=== PATIENT | female | born 1945 | race Caucasian/White ===

== ENCOUNTER 2018-06-04 21:05 | Emergency (ER) | payer OTHER ==
[2018-06-04 21:10] VITALS: BMI 27.4
[2018-06-04] MEDS ORDERED: SODIUM CHLORIDE 0.9% 1000 ML INFUS.BAG IV ONE (23:06)
[2018-06-04] MEDS ORDERED: ACETAMINOPHEN 1000 MG/100 ML VIAL (NON FORMULARY) IVPB ONE (23:06)
[2018-06-04] MEDS ORDERED: FAMOTIDINE 20 MG/50 ML IVPB 20 MG/50 ML MG IVPB ONE (23:09)
[2018-06-04] MEDS ORDERED: ONDANSETRON 4 MG/2 ML VIAL IVPUSH ONE (23:09)
--- NOTE | 2018-06-04 23:16 | PDOC ---
History of Present Illness <Cj Pardo - Last Filed: 06/05/18 01:06> - General History Source: Patient Exam Limitations: No Limitations - History of Present Illness Initial Comments: 06/04/18 23:15 The patient is a 72F with a PMH of HTN, prediabetes, and chronic low back pain who presents to the ER with complaints of 4 days of myalgias, weakness, nausea, vomiting, and diarrhea. The patient states that the weakness was so bad today that she was unable to hold herself up. She denies having anything like this in the past. She also admits to diffuse abdominal pain but cannot specify more on her abdominal pain. She denies CP, SOB, dysuria, hematuria, and cough. <Fabian Perez - Last Filed: 06/05/18 01:21> - General Chief Complaint: Pain Stated Complaint: SICK Time Seen by Provider: 06/04/18 22:55 Past History <Cj Pardo - Last Filed: 06/05/18 01:06> - Past Medical History Cancer: Yes (left breast lumpectomy) COPD: No Diabetes: No (impared fasting glucose) GI Disorders: Yes (gerd) HTN: Yes Hypercholesterolemia: Yes - Immunization History Immunization Up to Date: Yes - Suicide/Smoking/Psychosocial Hx Smoking Status: No Smoking History: Never smoked Number of Cigarettes Smoked Daily: 0 Hx Alcohol Use: Yes <Fabian Perez - Last Filed: 06/05/18 01:21> - Past Medical History Allergies/Adverse Reactions: Allergies Allergy/AdvReac Type Severity Reaction Status Date / Time No Known Allergies Allergy Verified 06/04/18 21:11 Home Medications: Ambulatory Orders Enalapril Maleate [Vasotec -] 10 mg PO DAILY #0 tablet 03/01/13 Omeprazole Magnesium [Prilosec (OTC)] 20 mg PO DAILY #0 tablet. 03/01/13 metFORMIN HCL [Glucophage -] 500 mg PO DAILY #0 tablet 03/01/13 Collagenase Clostridium Hist. [Santyl] 1 applic TP DAILY #90 oint...g. 03/24/18 Review of Systems - Review of Systems Able to Perform ROS?: Yes Comments:: 06/05/18 00:06 GENERAL/CONSTITUTIONAL: Positive for fever, chills, and weakness. HEAD, EYES, EARS, NOSE AND THROAT: No change in vision. No ear pain or discharge. No sore throat. CARDIOVASCULAR: No chest pain, palpitations, or lightheadedness. RESPIRATORY: No cough, wheezing, shortness of breath, or hemoptysis. GASTROINTESTINAL: Positive for nausea, vomiting, diarrhea, and diffuse abdominal pain. GENITOURINARY: No dysuria, frequency, hematuria, or change in urination. MUSCULOSKELETAL: Positive for myalgias. SKIN: No rash or lesions. NEUROLOGIC: No headache, numbness, tingling, focal weakness, loss of consciousness, or change in strength/sensation. Is the patient limited Mongolian proficient: No <Fabian Perez - Last Filed: 06/05/18 01:21> *Physical Exam - Vital Signs Last Vital Signs Temp Pulse Resp BP Pulse Ox 98.2 F 103 H 20 142/80 96 06/04/18 21:08 06/04/18 21:08 06/04/18 21:08 06/04/18 21:08 06/04/18 21:08 <Cj Pardo - Last Filed: 06/05/18 01:06> - Vital Signs Last Vital Signs Temp Pulse Resp BP Pulse Ox 98.2 F 103 H 20 142/80 96 06/04/18 21:08 06/04/18 21:08 06/04/18 21:08 06/04/18 21:08 06/04/18 21:08 - Physical Exam Comments: 06/05/18 00:08 GENERAL: Well developed, well nourished. Awake and alert. No acute distress. HEENT: Normocephalic, atraumatic. Hearing grossly normal. Moist mucous membranes. PERRLA, EOMI. No conjunctival pallor. Sclera are non-icteric. NECK: Supple. Full ROM. No JVD. CARDIOVASCULAR: Regular rate and rhythm. No murmurs, rubs, or gallops. PULMONARY: No evidence of respiratory distress. Lungs clear to auscultation bilaterally. No wheezing, rales or rhonchi. ABDOMINAL: Soft. Non-tender. Non-distended. No rebound or guarding. GENITOURINARY: No CVA tenderness bilaterally. MUSCULOSKELETAL: Normal range of motion at all joints. No bony deformities or tenderness. EXTREMITIES: No cyanosis. No clubbing. No edema. No calf tenderness or swelling. SKIN: Warm and dry. Normal capillary refill. No rashes. No jaundice. NEUROLOGICAL: Alert, awake, appropriate. Cranial nerves 2-12 grossly intact. Normal speech. PSYCHIATRIC: Cooperative. Good eye contact. Appropriate mood and affect. <Fabian Perez - Last Filed: 06/05/18 01:21> Moderate Sedation - Procedure Monitoring Vital Signs: Procedure Monitoring Vital Signs Temperature 98.2 F 06/04/18 21:08 Pulse Rate 103 H 06/04/18 21:08 Respiratory Rate 20 06/04/18 21:08 Blood Pressure 142/80 06/04/18 21:08 O2 Sat by Pulse Oximetry (%) 96 06/04/18 21:08 <Cj Pardo - Last Filed: 06/05/18 01:06> - Procedure Monitoring Vital Signs: Procedure Monitoring Vital Signs Temperature 98.2 F 06/04/18 21:08 Pulse Rate 103 H 06/04/18 21:08 Respiratory Rate 20 06/04/18 21:08 Blood Pressure 142/80 06/04/18 21:08 O2 Sat by Pulse Oximetry (%) 96 06/04/18 21:08 <Fabian Perez - Last Filed: 06/05/18 01:21> ED Treatment Course - LABORATORY CBC & Chemistry Diagram: 06/04/18 23:06 06/04/18 23:20 - ADDITIONAL ORDERS Additional order review: Laboratory Results 06/04/18 06/04/18 23:20 23:20 Sodium 138 Potassium 3.0 L Chloride 106 Carbon Dioxide 23 Anion Gap 9 BUN 13 Creatinine 0.7 Creat Clearance w eGFR > 60 Random Glucose 139 H Lactic Acid 1.1 Calcium 7.5 L Total Bilirubin 1.2 H AST 70 H ALT 21 Alkaline Phosphatase 86 Creatine Kinase 39 Troponin I < 0.02 Total Protein 6.2 L Albumin 2.9 L Lipase 113 06/04/18 23:06 RBC 4.09 MCV 86.7 MCHC 35.0 RDW 15.7 H MPV 9.1 Neutrophils % 78.3 D Lymphocytes % 7.3 L D Monocytes % 13.9 H D Eosinophils % 0.0 D Basophils % 0.5 - Medications Given in the ED: ED Medications Discontinued Medications Generic Name Dose Route Start Last Admin Trade Name Freq PRN Reason Stop Dose Admin Acetaminophen 1,000 mg 06/04/18 23:06 06/05/18 00:15 Ofirmev Injection - IVPB 06/04/18 23:07 1,000 mg ONCE ONE Administration Famotidine/Sodium Chloride 20 mg in 50 mls @ 100 mls/hr 06/04/18 23:09 00:16 Pepcid 20 Mg Premixed Ivpb - IVPB 06/04/18 23:38 100 mls/hr ONCE ONE Administration Metoclopramide HCl 10 mg 06/05/18 00:33 06/05/18 00:59 Reglan Injection - IVPUSH 06/05/18 00:34 10 mg ONCE ONE Administration Ondansetron HCl 4 mg 06/04/18 23:09 06/05/18 00:16 Zofran Injection IVPUSH 06/04/18 23:10 4 mg ONCE ONE Administration Potassium Chloride 20 meq 06/05/18 00:25 06/05/18 00:59 K-Dur - PO 06/05/18 00:26 20 meq ONCE ONE Administration Sodium Chloride 1,000 ml 06/04/18 23:06 06/05/18 00:15 Normal Saline - IV 06/04/18 23:07 1,000 ml ONCE ONE Administration <Cj Pardo - Last Filed: 06/05/18 01:06> - LABORATORY CBC & Chemistry Diagram: 06/04/18 23:06 06/04/18 23:20 <Fabian Perez - Last Filed: 06/05/18 01:21> Medical Decision Making - Medical Decision Making 06/05/18 00:08 The patient is a 72F with a PMH of HTN and prediabetes who presents to the ER with 4 days of myalgias, nausea, vomiting, diarrhea, fever, and abdominal pain concerning for influenza vs atypical presentation for ACS. EKG unremarkable. Giving symptomatic treatment and reassessing. 06/05/18 00:45 CBC, CMP WNL. Platelet count of 100. PO challenging pt. Influenza swab sent. K is 3.0. Replenishing with PO K. 06/05/18 00:59 Pt passed PO challenge. Flu swab negative. Trop negative. 06/05/18 01:20 Vitals normalized. Will d/c with PCP f/u. <Fabian Perez - Last Filed: 06/05/18 01:21> *DC/Admit/Observation/Transfer <Cj Pardo - Last Filed: 06/05/18 01:06> - Discharge Dispostion Decision to Admit order: No <Fabian Perez - Last Filed: 06/05/18 01:21> Diagnosis at time of Disposition: Viral syndrome - Discharge Dispostion Disposition: HOME Condition at time of disposition: Stable - Referrals Referrals: Kwesi Garvin MD [Primary Care Provider] - - Patient Instructions Additional Instructions: Your blood tests today showed that your platelets and potassium were slightly low. Please follow up with your primary doctor TOMORROW and let him know about these results. If you experience any abdominal pain, vomiting, chest pain, shortness of breath , or any other concerning symptoms, return to the ER immediately. - Post Discharge Activity
--- NOTE | 2018-06-04 23:37 | PDOC ---
Attending Attestation - Resident Resident Name: Fabian Perez - ED Attending Attestation I have performed the following: I have examined & evaluated the patient, The case was reviewed & discussed with the resident, I agree w/resident's findings & plan, Exceptions are as noted - HPI HPI: 06/04/18 23:34 The patient is a 72 year old female, with a significant PMH of HTN and high cholesterol,who presents to the emergency department today complaining of fever , chills, nausea, vomiting, diarrhea, and abdominal pain for 3 days. Pt states that she has had about 4 episodes of vomiting, nonbloody. Also endorses 3 episodes of watery brown diarrhea. States that her entire body hurts, including her shoulders and legs. Endorses diffuse abdominal cramping. Denies CP/SOB. Allergies: NKA Past surgical history: left breast lumpectomy PCP: Dr. Garvin - Physicial Exam PE: 06/04/18 23:37 "GENERAL: Awake, alert, and fully oriented, in no acute distress. HEAD: No signs of trauma EYES: PERRLA, EOMI, sclera anicteric, conjunctiva clear ENT: Auricles normal inspection, hearing grossly normal, nares patent, oropharynx clear without exudates. Moist mucosa NECK: Nontender, no stepoffs, Normal ROM, supple, no lymphadenopathy, JVD, or masses LUNGS: Breath sounds equal, clear to auscultation bilaterally. No wheezes, and no crackles HEART: Regular rate and rhythm, normal S1 and S2, no murmurs, rubs or gallops ABDOMEN: Soft, nontender, normoactive bowel sounds. No guarding, no rebound. No masses EXTREMITIES: Normal range of motion, no edema. No clubbing or cyanosis. No cords, erythema, or tenderness NEUROLOGICAL: Cranial nerves II through XII intact. 5/5 strength and sensation in all extremities, Normal speech, normal gait, normal cerebellar function SKIN: Warm, Dry, normal turgor, no rashes or lesions noted. - Medical Decision Making 06/04/18 23:37 72 F with diffuse bodyaches, abdominal pain, N+V+D. Exam with benign abdomen. Vitals notable for mild tachycardia. Pt afebrile in ED. Suspect viral gastroenteritis. Will check labs given vomiting and diarrhea. Also r/o ACS given age, though EKG is normal. - Labs, trop, lipase, lactate - IVF, GI cocktail - Consider CT if persistent pain 06/05/18 00:33 Labs notable for K 3.0 Will replete with PO K Labs otherwise unremarkable Pt reassessed - now feels better. repeat abdominal exam benign Will PO trial 06/05/18 01:08 Pt tolerated crackers and juice PO without N/V Repeat abdominal exam continues to be nontender Pt is well appearing, with normal vitals. Clinically stable for DC at this time. I discussed the physical exam findings, ancillary test results and final diagnoses with the patient. I answered all of the patient's questions. The patient was satisfied with the care received and felt comfortable with the discharge plan and treatment plan. The patient agrees to follow up with the primary care physician within 24-72 hours.
[2018-06-04 23:38] LABS: BASO % 0.5 % (0-2.0); HEMATOCRIT 35.4 % (32.4-45.2); HEMOGLOBIN 12.4 GM/dL (10.7-15.3); LYMPH % 7.3 % (8-40); MCH 30.3 pg (25.7-33.7); MEAN CELL VOLUME 86.7 fl (80-96); MEAN PLT VOLUME 9.1 fl (7.5-11.1); MONO % 13.9 % (3.8-10.2); NEUT % 78.3 % (42.8-82.8); PLATELET COUNT 100 K/MM3 (134-434); RBC 4.09 M/mm3 (3.60-5.2); RDW 15.7 % (11.6-15.6); WHITE BLOOD COUNT 9.3 K/mm3 (4.0-10.0)
[2018-06-05] MEDS ORDERED: ACETAMINOPHEN INJECTION 100 ML IVPB ONE
[2018-06-05] MEDS ORDERED: ONDANSETRON 4 MG/2 ML VIAL ONE
[2018-06-05] MEDS ORDERED: FAMOTIDINE 20 MG/50 ML IVPB 20 MG/50 ML MG IVPB ONE
[2018-06-05 00:21] LABS: ALBUMIN 2.9 g/dl (3.4-5.0); ALK PHOS 86 U/L (45-117); ANION GAP 9 MMOL/L (8-16); BILIRUBIN,TOTAL 1.2 mg/dL (0.2-1); BLOOD UREA NITROGEN 13 mg/dL (7-18); CALCIUM 7.5 mg/dL (8.5-10.1); CHLORIDE 106 mmol/L (98-107); CO2 23 mmol/L (21-32); CREATININE 0.7 mg/dL (0.55-1.3); GLUCOSE,RANDOM 139 mg/dL (74-106); LIPASE 113 U/L (73-393); SGOT/AST 70 U/L (15-37); SGPT/ALT 21 U/L (13-61); SODIUM 138 mmol/L (136-145); TOT PROT 6.2 g/dl (6.4-8.2)
[2018-06-05] MEDS ORDERED: POTASSIUM CHLORIDE TABS 20 MEQ TABLET.ER (FP) PO ONE ×4 (00:25→01:01)
[2018-06-05] MEDS ORDERED: KCL 10 MEQ IVPB 10 MEQ/100 ML INFUS.BAG IVPB SCH (00:30)
[2018-06-05] MEDS ORDERED: METOCLOPRAMIDE HCL INJECTION 10 MG/2 ML VIAL IVPUSH ONE (00:33)
[2018-06-05] MEDS ORDERED: KCL 10 MEQ IVPB 20 MEQ/200 ML INFUS.BAG IVPB ONE (00:53)
[2018-06-05] MEDS ORDERED: METOCLOPRAMIDE HCL INJECTION 10 MG/2 ML VIAL ONE (00:53)
[2018-06-05 01:07] VITALS: BP 118/68; PULSE 79; TEMP 97.9
[2018-06-05 02:09] LABS: PLATELET ESTIMATE SLT DECREASE
--- NOTE | 2018-06-05 09:55 | EKG ---
Test Reason : Blood Pressure : / mmHG Vent. Rate : 096 BPM Atrial Rate : 096 BPM P-R Int : 176 ms QRS Dur : 084 ms QT Int : 318 ms P-R-T Axes : -20 -20 -20 degrees QTc Int : 401 ms NORMAL SINUS RHYTHM MINIMAL VOLTAGE CRITERIA FOR LVH, MAY BE NORMAL VARIANT INFERIOR INFARCT , AGE UNDETERMINED ABNORMAL ECG WHEN COMPARED WITH ECG OF 27-FEB-2013 14:36, VENT. RATE HAS INCREASED BY 37 BPM Confirmed by GUDELIA MUIR MD ([id number]) on 06/05/2018 9:55:00 AM Referred By: Confirmed By:GUDELIA MUIR MD
== END 2018-06-05 01:42 | disposition home or self-care (01) ==
LOC: JER 21:05
PROC: 3E033GC Introduction of Other Therapeutic Substance into Peripheral Vein, Percutaneous Approach (ICD-10-PCS; principal; 2018-06-04)
PROC: 3E033GC Introduction of Other Therapeutic Substance into Peripheral Vein, Percutaneous Approach (ICD-10-PCS; 2018-06-04)
PROC: 3E033GC Introduction of Other Therapeutic Substance into Peripheral Vein, Percutaneous Approach (ICD-10-PCS; 2018-06-04)
PROC: 3E033NZ Introduction of Analgesics, Hypnotics, Sedatives into Peripheral Vein, Percutaneous Approach (ICD-10-PCS; 2018-06-04)
DX: B34.9 Viral infection, unspecified (principal); E87.6 Hypokalemia; I10 Essential (primary) hypertension; E78.00 Pure hypercholesterolemia, unspecified; K21.9 Gastro-esophageal reflux disease without esophagitis; Z85.3 Personal history of malignant neoplasm of breast
CPT/HCPCS: 36415; 80053; 82550; 83605; 83690; 84484; 85025; 87804; 93005; 93010; 99282-25; J0131; J7030

== ENCOUNTER 2018-09-27 13:47 | Inpatient (IN) | payer OTHER | END 2018-09-28 23:00 | disposition short-term general hospital (02) | LOC: JER 13:47 → JERBED 16:17 → J8W 17:33 → J2W 20:57 → JICU 21:04 ==

== ENCOUNTER 2019-11-21 18:58 | Inpatient (IN) | payer OTHER ==
--- NOTE | 2019-11-21 19:15 | PDOC ---
History of Present Illness - General Stated Complaint: VOMITING,NAUSEA Time Seen by Provider: 11/21/19 19:14 - History of Present Illness Initial Comments: 11/21/19 19:17 Patient is a 73year old female with hx of lymphoma, anemia sent from Dr. Nagy's office for evaluation of severe headache. This morning around 5 am, she went to the toilet, didn't feel so well, had a severe headache, associated with N/V (NBNB). She denies falling, trauma, LOC. She endorsed weakness, fatigue, diziness , denies chest pain, change of vision. She proceeded to go to her PCP Dr. Nagy, there they assessed her and found down her URINE Culture is positive for proteus marabellis. Patient was given ceftin prior and cutlure was resistant. She finished her 1 week course of antibiotic. Currently endorsed increased frequency of urinary. She was sent here for IV abx and eval of [facility] and follow up with hematolgoist Dr. fitzgerald at [facility] for lymphoma. Her headaches is mainly the occipital part, pain 9/10, happened suddenly today, denies photophobia, audiophobia. Past medical history: Hypertension, Hyperlipidemia, Diabetes Mellitus, Breast cancer dx 20yrs ago, s/p Left mastectomy with chemo and radiation. Lymphoma Allergies: Hydrocodone and mobic Past Surgical hx: Social History: Lives at home with son Smoking: Never smoked Alcohol: No alcohol use Drugs: Denies Travel: denies recently. PCP: Lilo Arm[facility] Connector: [place] GENERAL/CONSTITUTIONAL: No fever or chills. + weakness. HEAD, EYES, EARS, NOSE AND THROAT: No change in vision. No ear pain or discharge. No sore throat. CARDIOVASCULAR: No chest pain or shortness of breath RESPIRATORY: No cough, wheezing, or hemoptysis. GASTROINTESTINAL: +nausea, vomiting, -diarrhea or constipation. GENITOURINARY: No dysuria, or change in urination. + increase frequency, MUSCULOSKELETAL: No joint or muscle swelling or pain. No neck or back pain. SKIN: No rash NEUROLOGIC:+ headache, vertigo, no loss of consciousness, or change in strength/sensation. ENDOCRINE: No increased thirst. No abnormal weight change HEMATOLOGIC/LYMPHATIC: No anemia, easy bleeding, or history of blood clots. ALLERGIC/IMMUNOLOGIC: No hives or skin allergy. PE GENERAL: Awake, alert, and fully oriented, in no acute distress HEAD: No signs of trauma, normocephalic, atraumatic EYES: PERRLA, EOMI, sclera anicteric, conjunctiva clear ENT: Auricles normal inspection, hearing grossly normal, nares patent, oropharynx clear without exudates. Moist mucosa NECK: Normal ROM, supple, no lymphadenopathy, JVD, or masses LUNGS: No distress, speaks full sentences, clear to auscultation bilaterally HEART: Regular rate and rhythm, normal S1 and S2, no murmurs, rubs or gallops, peripheral pulses normal and equal bilaterally. +Chemoport in place. ABDOMEN: Soft, normoactive bowel sounds. No guarding, no rebound. No masses. Diffuse tenderness upon palpation. EXTREMITIES : Normal inspection, Normal range of motion, no edema. No clubbing or cyanosis. Left scar on the leg from surgery. NEUROLOGICAL: Cranial nerves II through XII grossly intact. Normal speech, no focal sensorimotor deficits. Gait is compromised due to spinal stenosis. Tenderness on the lumbar region ( she endorsed chronic problem). SKIN: Warm, Dry, normal turgor, no rashes or lesions noted 11/21/19 20:16 Past History - Medical History Allergies/Adverse Reactions: Allergies Allergy/AdvReac Type Severity Reaction Status Date / Time No Known Allergies Allergy Verified 05/24/19 15:21 Home Medications: Ambulatory Orders metFORMIN HCL [Glucophage -] 500 mg PO DAILY #0 tablet 03/01/13 Aspirin 81 mg PO DAILY 09/27/18 Aspirin 81 mg PO DAILY 09/27/18 Baclofen 10 mg PO HS 09/27/18 Dexlansoprazole [Dexilant] 60 mg PO DAILY 09/27/18 Duloxetine HCl [Cymbalta] 30 mg PO DAILY 09/27/18 Ergocalciferol (Vitamin D2) [Drisdol] 50,000 unit PO WEEKLY 09/27/18 Losartan Potassium 25 mg PO DAILY 09/27/18 Mirtazapine 15 mg PO DAILY 09/27/18 Rifaximin [Xifaxan] 550 mg PO DAILY 09/27/18 Rosuvastatin [Crestor -] 5 mg PO HS 09/27/18 Oxycodone HCl/Acetaminophen [Percocet 5-325 mg Tablet] 1 tab PO Q6H 11/21/19 Zolpidem Tartrate [Ambien] 10 mg PO HS 11/21/19 Anemia: Yes Cancer: Yes (left breast lumpectomy) COPD: No Diabetes: No (impared fasting glucose) GI Disorders: Yes (gerd) HTN: Yes Hypercholesterolemia: Yes - Immunization History Immunization Up to Date: Yes - Psycho-Social/Smoking History Smoking Status: No Smoking History: Never smoked Number of Cigarettes Smoked Daily: 0 ED Treatment Course - LABORATORY CBC & Chemistry Diagram: 11/21/19 20:16 11/21/19 20:16 Medical Decision Making - Medical Decision Making 11/21/19 20:09 73 F hx of lymphoma, breast cancer broought here from Dr. Nagy office for evaluation of IV antibiotic and headache evaluation. Imaging: CT scan non contrast Lab: CBC, CMP, lipase, trop, UA/UC EKG: reveal : normal sinus rhtyhm, vent rate 66, no ST changes suggesting ischemic. 11/21/19 21:34 CT scan showed no bleeding/ no acute pathology Lab: no elevated WBC, trop is negative , UA is normal. Reassessed patient. Patient is still complaining of dizziness/ spinning sensation when she moved left and right. She hasn't also eaten anything. This is more vertigo. Will give 1 L of fluid, torado for pain, meclizine for vertigo. MBMD was sent. 11/21/19 22:[address] Will under tele observation. 11/21/19 22:08 11/21/19 22:10 Discharge - Discharge Information Problems reviewed: Yes Clinical Impression/Diagnosis: Vertigo, Pre-syncope Condition: Fair - Admission Yes - Follow up/Referral - Patient Discharge Instructions - Post Discharge Activity
--- NOTE | 2019-11-21 19:28 | PDOC ---
Attending Attestation - Resident Resident Name: Sudeep Wetzel - ED Attending Attestation I have performed the following: I have examined & evaluated the patient, The case was reviewed & discussed with the resident, I agree w/resident's findings & plan - HPI HPI: 11/21/19 20:13 73year old female with hx of Hypertension, Hyperlipidemia, Diabetes Mellitus, Breast cancer dx 20yrs ago, s/p Left mastectomy with chemo and radiation. Lymphoma and anemia, sent from Dr. Nagy's office for evaluation of severe headache. This morning around 5 am, she went to the toilet, didn't feel so well, had a severe headache, associated with N/V (NBNB). She denies falling, trauma, LOC. She endorsed weakness, fatigue, diziness , denies chest pain, change of vision. She proceeded to go to her PCP Dr. Nagy, there they assessed her and found down her URINE Culture is positive for proteus marabellis. Patient was given ceftin prior and cutlure was resistant. She finished her 1 week course of antibiotic. Currently endorsed increased frequency of urinary. She was sent here for IV abx and eval of [facility] and follow up with hematolgoist Dr. Ochoa at [facility] for lymphoma. Her headaches is mainly the occipital part, pain 9/10, happened suddenly today, denies photophobia, audiophobia. 11/21/19 21:34 - Physicial Exam PE: 11/21/19 20:29 Agree with the resident's HPI and PE as documented in the electronic medical record. malaised appearing. EOMI, PERRL, nl conjunctiva, anicteric; neck supple. lungs clear, RRR, abdomen soft nontender. no rebound, guarding. Back nontender. KRUSE x4, no focal neuro deficits. No peripheral edema. normal color for ethnicity, WWP. speech clear no nystagmus 5/5 plantar and dorsiflexion, 5/5 prox and distal strength, SILT CN II to XII grossly intact speech clear. 11/21/19 21:34 - Medical Decision Making 11/21/19 19:28 Vital Signs Temp Pulse Resp BP Pulse Ox 98.0 F 69 20 155/90 99 11/21/19 19:09 11/21/19 19:11/21/19 19:09 11/21/19 19:11/21/19 19:11/21/19 21:29 vitals wnl neuro intact +vertigo, appears more peripheral, a/w n/v, head movements precipitate her dizziness which she demonstrates as the room is spinning. +acute headache analgesia in the ED, IVF, meclizine, reassess. Laboratory results are reviewed within normal limits, negative troponin, UA is negative for infection preliminarily, follow-up on urine culture ecg is sinus rhythm. Patient is already currently on some antibiotics and questionable treatment outpatient CT negative for acute pathology sx most c/w peripheral vertigo, unlikely head bleed/CVA. admit for presyncope workup, vertigo (intractible) a/w headache, observation, tele Dr Nagy also sent the patient to be admitted for ?UTI. 11/21/19 21:34 Heart Score/ECG Review #1 ECG reviewed & interpreted by me at: 19:15 General ECG Interpretation: Sinus Rhythm, Normal Rate, Normal Intervals 11/21/19 20:29 EKG normal sinus rhythm 66 beats per min, no interval abnormalities, narrow QRS, ST and T wave segments and morphology normal. Nonspecific T wave abnormalities Discharge - Discharge Information Problems reviewed: Yes Clinical Impression/Diagnosis: Vertigo, Pre-syncope Condition: Fair - Admission Yes - Follow up/Referral - Patient Discharge Instructions - Post Discharge Activity
[2019-11-21] MEDS ORDERED: ACETAMINOPHEN 1000 MG/100 ML VIAL (NON FORMULARY) IVPB ONE (19:51)
[2019-11-21] MEDS ORDERED: METOCLOPRAMIDE HCL INJECTION 10 MG/2 ML VIAL IVPB ONE (19:51)
[2019-11-21] MEDS ORDERED: METOCLOPRAMIDE HCL INJECTION 10 MG/2 ML VIAL ONE (20:19)
[2019-11-21] MEDS ORDERED: ACETAMINOPHEN INJECTION 100 ML IVPB ONE (20:19)
[2019-11-21 20:46] LABS: BASO % 0.3 % (0-2.0); EOS % 0.1 % (0-4.5); HEMATOCRIT 40.8 % (32.4-45.2); HEMOGLOBIN 13.7 GM/dL (10.7-15.3); LYMPH % 22.6 % (8-40); MCHC 33.6 g/dl (32.0-36.0); MEAN PLT VOLUME 7.7 fl (7.5-11.1); MONO % 6.6 % (3.8-10.2); NEUT % 70.4 % (42.8-82.8); PLATELET COUNT 179 K/MM3 (134-434); RBC 4.04 M/mm3 (3.60-5.2); RDW 13.4 % (11.6-15.6); WHITE BLOOD COUNT 4.3 K/mm3 (4.0-10.0)
[2019-11-21 20:47] LABS: EPI CELLS 1 /uL (0-25.1); HYALINE CASTS 0 /uL (0-3.1); PH,URINE 7.5 (5.0-8.0); URINE APPEARANCE CLOUDY; URINE BACTERIA 4 /uL (0-1359); URINE BILIRUBIN NEGATIVE (NEGATIVE); URINE COLOR YELLOW; URINE GLUCOSE (UA) NEGATIVE (NEGATIVE); URINE KETONE NEGATIVE (NEGATIVE); URINE LEUK ESTERASE NEGATIVE (NEGATIVE); URINE NITRITE NEGATIVE (NEGATIVE); URINE PROTEIN NEGATIVE (NEGATIVE); URINE RBC 3 /uL (0-23.9); URINE UROBILINOGEN 0.2 mg/dL (0.2-1.0); URINE WBC 2 /uL (0-25.8)
[2019-11-21 21:14] LABS: ALBUMIN 4.1 g/dl (3.4-5.0); BLOOD UREA NITROGEN 7.2 mg/dL (7-18); CALCIUM 9.4 mg/dL (8.5-10.1); CREATININE 0.4 mg/dL (0.55-1.3); POTASSIUM 3.8 mmol/L (3.5-5.1); TOT PROT 7.2 g/dl (6.4-8.2)
[2019-11-21] MEDS ORDERED: SODIUM CHLORIDE 0.9% 500 ML INFUS.BAG IV ONE (21:30)
[2019-11-21] MEDS ORDERED: KETOROLAC TROMETHAMINE 30 MG/1 ML VIAL IVPUSH ONE (21:30)
[2019-11-21] MEDS ORDERED: MECLIZINE HCL 25 MG TABLET (FP) PO ONE (21:32)
[2019-11-21] MEDS ORDERED: KETOROLAC TROMETHAMINE 15 MG/ML VIAL ONE (21:33)
[2019-11-21] MEDS ORDERED: MECLIZINE HCL 25 MG TABLET (FP) ONE (21:33)
[2019-11-21] MEDS ORDERED: KETOROLAC TROMETHAMINE 15 MG/ML VIAL IVPUSH ONE (21:33)
--- NOTE | 2019-11-21 22:18 | HP ---
CHIEF COMPLAINT: "I feel my head spinning and I have a severe headache, nausea and vomiting ." PCP:Dr. Garvin Manager Emergency: Dr. Berg at [facility] HISTORY OF PRESENT ILLNESS: 73 year old mainly Filipino speaking female with history of hypertension, hyperlipidemia, NIDDM, lymphoma and breast cancer, status post left mastectomy with chemo and radiation,in remission and anemia who was sent from Dr. Garvin's office for evaluation of severe headache. As reported this morning around 5 am, she went to the toilet, and she didn't feel so well, had a severe headache, associated with nausea and vomiting. She denied falling, trauma, or loss of consciousness. She endorses weakness, fatigue, and diziness saying "head is spinning". She denied chest pain or change of vision. She went to see her PCP Dr. Garvin, there they assessed her and found her urine culture is positive for proteus marabellis. Patient was given ceftin prior and cutlure was resistant. She finished her 1 week course of antibiotic. Currently she endorsed increased frequency of urinary. She was sent here for IV abx and further evaluation of headache. ER course was notable for: CT scan of head with no acute intracranial findings. UA- cloudy,negative nitrite and leukoesterase, urine culture 11/21/2019 pending Lab findings- WBC 4.3, troponin <.03 She is hemodynamically stable and afebrile at this time. She received 1 liter of normal saline in ER. Recent Travel: no PAST MEDICAL HISTORY: hypertension hyperlipidemia non insulin dependent diabetes mellitus breast cancer dx 20yrs ago lymphoma PAST SURGICAL HISTORY: s/p left mastectomy with chemotherapy and radiation Social History: lives at home with son Smoking:no Alcohol:no Drugs: no Allergies No Known Allergies Allergy (Verified 05/24/19 15:21) HOME MEDICATIONS: Home Medications Medication Instructions Recorded metFORMIN HCL [Glucophage -] 500 mg PO DAILY #0 tablet 03/01/13 Aspirin 81 mg PO DAILY 09/27/18 Aspirin 81 mg PO DAILY 09/27/18 Baclofen 10 mg PO HS 09/27/18 Dexlansoprazole [Dexilant] 60 mg PO DAILY 09/27/18 Duloxetine HCl [Cymbalta] 30 mg PO DAILY 09/27/18 Ergocalciferol (Vitamin D2) 50,000 unit PO WEEKLY 09/27/18 [Drisdol] Losartan Potassium 25 mg PO DAILY 09/27/18 Mirtazapine 15 mg PO DAILY 09/27/18 Rifaximin [Xifaxan] 550 mg PO DAILY 09/27/18 Rosuvastatin [Crestor -] 5 mg PO HS 09/27/18 Oxycodone HCl/Acetaminophen 1 tab PO Q6H 11/21/19 [Percocet 5-325 mg Tablet] Zolpidem Tartrate [Ambien] 10 mg PO HS 11/21/19 REVIEW OF SYSTEMS CONSTITUTIONAL: Absent: fever, chills, diaphoresis, generalized weakness, fatigue, malaise, loss of appetite, weight change HEENT: Absent: rhinorrhea, nasal congestion, throat pain, throat swelling, difficulty swallowing, mouth swelling, ear pain, eye pain, visual changes CARDIOVASCULAR: Absent: chest pain, syncope, palpitations, irregular heart rate, lightheadedness, peripheral edema, RESPIRATORY: Absent: cough, shortness of breath, dyspnea with exertion, orthopnea, wheezing, stridor, hemoptysis GASTROINTESTINAL: Absent: abdominal pain, abdominal distension, nausea, vomiting, diarrhea, constipation, melena, hematochezia GENITOURINARY: Absent: dysuria, frequency, urgency, hesitancy, hematuria, flank pain, genital pain MUSCULOSKELETAL: Absent: myalgia, arthralgia, joint swelling, back pain, neck pain SKIN: Absent: rash, itching, pallor HEMATOLOGIC/IMMUNOLOGIC: Absent: easy bleeding, easy bruising, lymphadenopathy, frequent infections ENDOCRINE: Absent: unexplained weight gain, unexplained weight loss, heat intolerance, cold intolerance NEUROLOGIC: Absent: headache, focal weakness or paresthesias, dizziness, unsteady gait, seizure, mental status changes, bladder or bowel incontinence PSYCHIATRIC: Absent: anxiety, depression, suicidal or homicidal ideation, hallucinations. PHYSICAL EXAMINATION Vital Signs - 24 hr 11/21/19 19:09 Temperature 98.0 F Pulse Rate 69 Respiratory 20 Rate Blood Pressure 155/90 O2 Sat by Pulse 99 Oximetry (%) General no acute distress Vital signs reviewed afebrile Neck no JVD Lungs CTA nonlabored breathing effort no rales no wheezing no use of accessory muscles Heart s1s2 rate regular Abdomen soft nontender nondistended Extremities warm tot ouch no pitting edema no cyanosis Mood calm Laboratory Results - last 24 hr 11/21/19 11/21/1920 20:00 20:16 20:16 WBC 4.3 RBC 4.04 Hgb 13.7 Hct 40.8 D MCV 101.0 H MCH 34.0 H D MCHC 33.6 RDW 13.4 D Plt Count 179 D MPV 7.7 D Absolute Neuts (auto) 3.0 Neutrophils % 70.4 Lymphocytes % 22.6 D Monocytes % 6.6 Eosinophils % 0.1 D Basophils % 0.3 Nucleated RBC % 0 Sodium 140 Potassium 3.8 Chloride 105 Carbon Dioxide 28 Anion Gap 7 L BUN 7.2 Creatinine 0.4 L Est GFR (CKD-EPI)AfAm 119.76 Est GFR (CKD-EPI)NonAf 103.33 Random Glucose 110 H Calcium 9.4 Total Bilirubin 1.0 AST 25 ALT 36 Alkaline Phosphatase 107 Troponin I Total Protein 7.2 Albumin 4.1 Lipase 78 Urine Color Yellow Urine Appearance Cloudy Urine pH 7.5 D Ur Specific [place] 1.006 L Urine Protein Negative Urine Glucose (UA) Negative Urine Ketones Negative Urine Blood Trace Urine Nitrite Negative Urine Bilirubin Negative Urine Urobilinogen 0.2 Ur Leukocyte Esterase Negative Urine WBC (Auto) 2 Urine RBC (Auto) 3 Urine Casts (Auto) 0 U Epithel Cells (Auto) 1 Urine Bacteria (Auto) 4 11/21/19 20:16 WBC RBC Hgb Hct MCV MCH MCHC RDW Plt Count MPV Absolute Neuts (auto) Neutrophils % Lymphocytes % Monocytes % Eosinophils % Basophils % Nucleated RBC % Sodium Potassium Chloride Carbon Dioxide Anion Gap BUN Creatinine Est GFR (CKD-EPI)AfAm Est GFR (CKD-EPI)NonAf Random Glucose Calcium Total Bilirubin AST ALT Alkaline Phosphatase Troponin I < 0.02 Total Protein Albumin Lipase Urine Color Urine Appearance Urine pH Ur Specific [place] Urine Protein Urine Glucose (UA) Urine Ketones Urine Blood Urine Nitrite Urine Bilirubin Urine Urobilinogen Ur Leukocyte Esterase Urine WBC (Auto) Urine RBC (Auto) Urine Casts (Auto) U Epithel Cells (Auto) Urine Bacteria (Auto) ASSESSMENT/PLAN: In summary this is a 73 year old mainly Filipino speaking female with history of hypertension(on meds), hyperlipidemia, NIDDM, lymphoma and breast cancer, status post left mastectomy with chemo and radiation,in remission,and anemia who was sent from PCP office for evaluation of severe headache associated with nausea and vomiting. Her urine culture was positive for proteus marabellis in the outpatient setting(no records available) . She was treated with oral ceftin for 1 week but urine culture with sensitivity showed resistance to ceftin. She is being admitted for further medical evaluation and treatment for headache and increased frequency. 1. Headache/ ? Vertigo/ Presycopy SBP 150's CT scan of head negative --Neurology consulted- Dr. Molina --neuro checks q6hr --check carotid US --monitor on telemetry --consider echocardiogram in outpatient setting to exclude 2. R/O UTI UA negative for nitrite leukoesterase, trace blood seen urine culture was positive for proteus marabellis in the outpatient setting(no records available for review). As reported in chart she was treated with ceftin for 1 week prior but urine culture sensitivity showed resistance. --urine culture 11/20 pending --blood cultures ordered and pending --currently afebrile, no hypotension, normal WBC --check lactic acid and procalcitionin --will await for repeat urine culture results prior to starting IV antibiotics --Infectious Diseases consulted- Dr. Palacios for IV antibiotic recommendations 3. Hypertension SBP 150's --c/w losartan 4. Hyperlipidemia LFT's normal --c/w crestor 5. NIDDM --blood glucose monitoring before meals and at bedtime --hold metformin --insulin as per sliding scale --check hgba1c 6. Rule Out COVID(low suspicion) no evidence of hypoxia --follow up on COVID swab sent 11/20 --maintain strict isolation with contact /droplet precautions --maintain o2 sat >90% DVT Prophylaxis lovenox 40 mg daily FEN no further IVF indicated BMP daily, replete electrolytes as needed low sodium diet [facility] Medical Visit type - Medication Review Med list reviewed for High Risk Meds patients 65 and older: Yes - Emergency Visit Emergency Visit: Yes ED Registration Date: 11/21/19 Care time: The patient presented to the Emergency Department on the above date and was hospitalized for further evaluation of their emergent condition. - New Patient This patient is new to me today: Yes Date on this admission: 11/22/19 - Critical Care Critical Care patient: No
[2019-11-21] MEDS ORDERED: ERGOCALCIFEROL (VIT D2) 50,000 UNIT (1.25 MG) CAPSULE PO SCH (22:30)
[2019-11-21] MEDS: SODIUM CHLORIDE 1,000 ML IV SCH (22:53)
[2019-11-21] MEDS ORDERED: traMADol HCL 50 MG TABLET PO ONE (22:55)
[2019-11-21] MEDS ORDERED: ENOXAPARIN NA (PORCINE) 40 MG/0.4 ML DISP.SYRIN SQ ONE (23:42)
[2019-11-22] MEDS ORDERED: traMADol HCL 50 MG TABLET ONE (00:15)
[2019-11-22 04:47] VITALS: BMI 25.9
[2019-11-22] MEDS: INSULIN SLIDING SCALE (NOVOLOG) 1 VIAL SQ SCH ×4 (06:13→21:58)
[2019-11-22 08:12] LABS: HEMATOCRIT 36.9 % (32.4-45.2); HEMOGLOBIN 12.5 GM/dL (10.7-15.3); MCH 33.7 pg (25.7-33.7); MCHC 33.7 g/dl (32.0-36.0); MEAN PLT VOLUME 7.6 fl (7.5-11.1); PLATELET COUNT 165 K/MM3 (134-434); RBC 3.69 M/mm3 (3.60-5.2); RDW 13.6 % (11.6-15.6)
[2019-11-22 08:23] LABS: BLOOD UREA NITROGEN 7.4 mg/dL (7-18); CALCIUM 8.8 mg/dL (8.5-10.1); CREATININE 0.4 mg/dL (0.55-1.3); PHOSPHOROUS 3.5 mg/dL (2.5-4.9); POTASSIUM 3.7 mmol/L (3.5-5.1)
--- NOTE | 2019-11-22 08:24 | PN ---
Progress Note, Physician History of Present Illness: 73 year old mainly [place] speaking female with history of hypertension, hyperlipidemia, NIDDM, lymphoma and breast cancer, status post left mastectomy with chemo and radiation,in remission - Current Medication List Current Medications: Active Medications Aspirin (Asa -) 81 mg PO DAILY [facility] Baclofen (Lioresal -) 10 mg PO HS [facility] Duloxetine HCl (Cymbalta -) 30 mg PO DAILY [facility] Enoxaparin Sodium (Lovenox -) 40 mg SQ DAILY [facility] Ergocalciferol (Drisdol -) 50,000 unit PO Q7D@1000 JOEL Sodium Chloride (Normal Saline -) 1,000 mls @ 75 mls/hr IV ASDIR [facility] Last Admin: 11/21/19 22:53 Dose: 75 mls/hr Documented by: Insulin Aspart (Novolog Vial Sliding Scale -) 1 vial SQ ACHS [facility]; Protocol Last Admin: 11/22/19 06:13 Dose: Not Given Documented by: Losartan Potassium (Cozaar -) 25 mg PO DAILY JOEL Rosuvastatin Calcium (Crestor -) 5 mg PO HS [facility] - Objective Vital Signs: Vital Signs Temperature 97.5 F L 11/22/19 06:00 Pulse Rate 57 L 11/22/19 06:00 Respiratory Rate 18 11/22/19 06:00 Blood Pressure 137/73 11/22/19 06:00 O2 Sat by Pulse Oximetry (%) 96 11/22/19 06:00 Cardiovascular: Yes: Regular Rate and Rhythm Respiratory: Yes: Regular, CTA Bilaterally Gastrointestinal: Yes: Normal Bowel Sounds, Soft. No: Tenderness Edema: No Neurological: Yes: Alert, Oriented Labs: CBC, BMP 11/22/19 06:35 Problem List - Problems (1) UTI (urinary tract infection) Assessment/Plan: -urine culture was positive for proteus marabellis in the outpatient setting(no records available for review). As reported in chart she was treated with ceftin for 1 week prior but urine culture sensitivity showed resistance. --urine culture 11/20 pending --blood cultures ordered and pending --Infectious Diseases consulted-- IV antibiotic recommendations Code(s): N39.0 - URINARY TRACT INFECTION, SITE NOT SPECIFIED (2) New onset of headaches Assessment/Plan: -Associated with dizziness - MRI nad - CT scan of head negative --Neurology consulted- Dr. Molina --neuro checks q6hr --carotid US minimal ds --monitor on telemetry Code(s): R51 - HEADACHE (3) Diabetes Assessment/Plan: bgm Code(s): E11.9 - TYPE 2 DIABETES MELLITUS WITHOUT COMPLICATIONS (4) Hypertension Code(s): I10 - ESSENTIAL (PRIMARY) HYPERTENSION (5) Lymphoma Assessment/Plan: Patient has a port for chemo and MRI can be done Code(s): C85.90 - NON-HODGKIN LYMPHOMA, UNSPECIFIED, UNSPECIFIED SITE (6) Spinal stenosis of lumbar region with radiculopathy Assessment/Plan: monitor neuro Code(s): M48.061 - SPINAL STENOSIS, LUMBAR REGION WITHOUT NEUROGENIC ELINA; M54.16 - RADICULOPATHY, LUMBAR REGION
[2019-11-22] MEDS: DULoxetine HCL 30 MG CAPSULE.DR PO SCH (09:06)
[2019-11-22] MEDS: LOSARTAN POTASSIUM 25 MG TABLET PO SCH (09:06)
[2019-11-22] MEDS: ASPIRIN 81 MG CHEWABLE TABLETS PO SCH (09:06)
[2019-11-22] MEDS ORDERED: RIFAXIMIN 550 MG TABLET (UD) PO SCH (10:00)
[2019-11-22] MEDS ORDERED: ENOXAPARIN NA (PORCINE) 40 MG/0.4 ML DISP.SYRIN SQ SCH (10:00)
--- NOTE | 2019-11-22 11:31 | EKG ---
Test Reason : Blood Pressure : / mmHG Vent. Rate : 066 BPM Atrial Rate : 066 BPM P-R Int : 174 ms QRS Dur : 086 ms QT Int : 426 ms P-R-T Axes : -09 -22 009 degrees QTc Int : 446 ms NORMAL SINUS RHYTHM MODERATE VOLTAGE CRITERIA FOR LVH, MAY BE NORMAL VARIANT INFERIOR INFARCT (CITED ON OR BEFORE 04-JUN-2018) ABNORMAL ECG WHEN COMPARED WITH ECG OF 27-SEP-2018 15:00, NO SIGNIFICANT CHANGE WAS FOUND Confirmed by JUANITO BREAUX MD ([id number]) on 11/22/2019 11:30:55 AM Referred By: Confirmed By:JUANITO BREAUX MD
--- NOTE | 2019-11-22 13:17 | PN ---
Progress Note (short form) - Note Progress Note: ID CONSULT DICTATED UTI- PROTEUS R/O SEPSIS SECONDARY TO UTI NEAR SYNCOPE AWAIT REPEAT C/S EMPIRIC CEFTRIAXONE
[2019-11-22] MEDS ORDERED: DEXTROSE 5%-WATER 100 ML IVPB ONE (13:38)
[2019-11-22] MEDS: SODIUM CHLORIDE 1,000 ML IV SCH ×2 (13:53→23:51)
[2019-11-22] MEDS: CEFTRIAXONE 2 GM in DEXTROSE 5%-WATER 100 ML IVPB SCH (13:53)
--- NOTE | 2019-11-22 14:06 | CONS ---
DATE OF CONSULTATION: DATE OF DICTATION: 11/22/2019 CHIEF COMPLAINT/HISTORY OF PRESENT ILLNESS: The patient is a 73-year-old female evaluated for urinary tract infection. She was admitted to the hospital on November 21, 2019. She had awoken at 5 a.m. and had ambulated to the bathroom. She developed severe headache associated with nausea, vomiting, generalized weakness, dizziness, fatigue, and near-syncope. She contacted her primary care physician and was advised to report to the emergency room. Prior to admission, she had developed a urinary tract infection. Urine culture at that time was positive for Proteus mirabilis for which she received a 1-week course of Ceftin. According to the notes, the isolate was resistant to Ceftin. She continues to complain of urinary frequency; however, she denies any urgency. No complaints of hematuria. She denies any suprapubic or flank pain. Her last hospital admission was in September of 2018. She was admitted with possible near-syncope. A CAT scan of the head was performed and showed no acute change. Presently, she is out of bed to chair. She is in no acute distress. PAST MEDICAL HISTORY: Positive for spinal stenosis, lymphoma diagnosed last year, status post cycles of chemotherapy. She reports she has now been in remission since February. Hypertension, hyperlipidemia, diabetes mellitus, breast cancer. PAST SURGICAL HISTORY: Status post left mastectomy. She is status post chemotherapy and radiation therapy. ALLERGIES: No known allergies. SOCIAL HISTORY: Lives at home with her son. She is a nonsmoker, nondrinker. REVIEW OF SYSTEMS: Neurologic: As per HPI. Cardiac: Negative chest pain or palpitations. Respiratory: Negative cough or sputum production. Gastrointestinal: Positive for nausea, vomiting. No diarrhea. Genitourinary: Positive for urinary tract infection. LABORATORY DATA: White count 4.0, hematocrit 36.9, platelets 165, creatinine 0.4. Liver enzymes normal. Urinalysis: Two white cells. Blood and urine cultures are pending. PHYSICAL EXAMINATION: General: She is seated in bed, eating lunch. She is in no acute distress. She is not acutely toxic appearing. Vital Signs: Temperature 97.8, blood pressure 148/82, pulse 80, regular. Respirations 18 per minute. HEENT: Sclerae are anicteric. Cardiovascular: Heart sounds S1, S2. Lungs: Clear. Abdomen: Soft. No suprapubic or flank tenderness. Extremities: Negative for edema. IMPRESSION: 1. Urinary tract infection. 2. Presyncope. 3. History of lymphoma. 4. History of diabetes mellitus. Culture results from pre-admission show Proteus mirabilis sensitive to ceftriaxone, pending repeat urinalysis and urine culture. Will empirically treat with ceftriaxone 2 g IV piggyback daily. Await blood and urine culture results. Will follow. Thank you for the kind referral. BLAISE FRIEDMAN M.D. [id number]
[2019-11-22] MEDS: ACETAMINOPHEN 500 MG TABLET (FP) PO PRN ×2 (14:15→21:45)
--- NOTE | 2019-11-22 20:19 | CONSULT ---
Consult - text type - Consultation Consultation Note: NEUROLOGY CONSULTATION is greatly appreciated: Events reviewed. Patient examined. This 73 yo RH woman with h/o HTN, DM, Chol, Anemia is currently receiving chemoRx at [facility] for Lymphoma. PMH also sig for breast Ca, s/p left mastectomy 20 years ago followed by chemo and RT. On: metFORMIN; Aspirin 81; Baclofen 10 HS; Dexilant; Cymbalta; Losartan; Mirtazapine; Xifaxan; Crestor; Oxycodone 5-325; gabapentin 400qd; and Zolpidem. Last Mar. she had a long hospital course for surgery and antibiotics for soft tissue infection in the right leg. Progressive gait dysfunction since a fall in street 3 years ago with Pains down backs of both legs with first steps and weakness left foot. 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 Yesterday went to bed and, as she lay down, she developed severe spinning vertigo with nausea and vomiting and came to ED Dizziness and nausea resolved by this AM with a mild, dull, residual headache. Pt. denies prior headache history. CT of head (reviewed): Normal MRI of brain (reviewed and not yet reported): Normal Carotid duplex dopplers: Scattered intimal calcification and plaque. FLORENTIN: No bruits. Neg SLR. Cor reg, skin scars right medial thigh. Chemo portal right chest NEURO: MS/speech: normal CN II-XII: Normal without nystagmus Motor: No drift or tremor. Isolated weakness of left ankle dorsiflexion, inversion eversion (4-/5). Otherwise normal strength. Normal reflexes except absent ankle jerks. Plantars silent Coord: No FTN dystaxia Sensory: Decreased vibration both feet. Decreased pin and tough left L5 dermatome Gait: extremely flexed, unsteady with left footdrop and steppage. IMP: 1. Severe LS spinal stenosis with severe left L5 radiculopathy 2. Etiology of vertigo is not immediately apparent. Most likely acute labyrinthitis on a positional basis. SUGGEST: Agree with monitoring. R/O hypoglycemia PT of gait with a walker. Patient is clearly a candidate for surgical decompression at L4L5 in spite of oncological treatment. Thank you very much, Jorge Molina MD
[2019-11-22] MEDS: ROSUVASTATIN CA 5 MG TABLET (FP) PO SCH (21:45)
[2019-11-22] MEDS ORDERED: BACLOFEN 10 MG TABLET (FP) PO SCH (22:00)
[2019-11-23] MEDS: ACETAMINOPHEN 500 MG TABLET (FP) PO PRN (04:05)
[2019-11-23] MEDS: INSULIN SLIDING SCALE (NOVOLOG) 1 VIAL SQ SCH ×4 (06:20→22:12)
--- NOTE | 2019-11-23 08:42 | DS ---
Physical Examination Vital Signs: Vital Signs Temperature 97.6 F 11/23/19 06:00 Pulse Rate 72 11/23/19 06:00 Respiratory Rate 18 11/23/19 06:00 Blood Pressure 135/79 11/23/19 06:00 O2 Sat by Pulse Oximetry (%) 100 11/23/19 06:00 Cardiovascular: Yes: Regular Rate and Rhythm Respiratory: Yes: Regular, CTA Bilaterally Gastrointestinal: Yes: Normal Bowel Sounds, Soft Labs: CBC, BMP 11/22/19 06:35 11/22/19 06:35 Discharge Summary Problems reviewed: Yes Reason For Visit: PRE-SYNCOPE, VERTIGO Current Active Problems Lymphoma (Acute) New onset of headaches (Acute) Pre-syncope (Acute) Spinal stenosis of lumbar region with radiculopathy (Acute) UTI (urinary tract infection) (Acute) Vertigo (Acute) Hospital Course: - Problems (1) UTI (urinary tract infection) Assessment/Plan: -urine culture was positive for proteus marabellis in the outpatient setting(no records available for review). As reported in chart she was treated with ceftin for 1 week prior but urine culture sensitivity showed resistance. --urine culture 11/20 pending --blood cultures ordered and pending --Infectious Diseases consulted-- IV antibiotic recommendations Code(s): N39.0 - URINARY TRACT INFECTION, SITE NOT SPECIFIED (2) New onset of headaches Assessment/Plan: -Associated with dizziness - MRI nad - CT scan of head negative --Neurology consulted- Dr. Molina --neuro checks q6hr --carotid US minimal ds --monitor on telemetry Code(s): R51 - HEADACHE (3) Diabetes Assessment/Plan: bgm Code(s): E11.9 - TYPE 2 DIABETES MELLITUS WITHOUT COMPLICATIONS (4) Hypertension Code(s): I10 - ESSENTIAL (PRIMARY) HYPERTENSION (5) Lymphoma Assessment/Plan: Patient has a port for chemo and MRI can be done Code(s): C85.90 - NON-HODGKIN LYMPHOMA, UNSPECIFIED, UNSPECIFIED SITE (6) Spinal stenosis of lumbar region with radiculopathy Assessment/Plan: monitor neuro appreciated--NS consult resume gabapentin and percocet Code(s): M48.061 - SPINAL STENOSIS, LUMBAR REGION WITHOUT NEUROGENIC ELINA; M54.16 - RADICULOPATHY, LUMBAR REGION dc home if cleared by ID Condition: Fair - Instructions Referrals: Keaton Nagy MD [Primary Care Provider] - 1 Week - Home Medications Comprehensive Discharge Medication List: Ambulatory Orders Aspirin 81 mg PO DAILY 09/27/18 Aspirin 81 mg PO DAILY 09/27/18 Baclofen 10 mg PO HS 09/27/18 Dexlansoprazole [Dexilant] 60 mg PO DAILY 09/27/18 Duloxetine HCl [Cymbalta] 30 mg PO DAILY 09/27/18 Ergocalciferol (Vitamin D2) [Drisdol] 50,000 unit PO WEEKLY 09/27/18 Losartan Potassium 25 mg PO DAILY 09/27/18 Mirtazapine 15 mg PO DAILY 09/27/18 Rifaximin [Xifaxan] 550 mg PO DAILY 09/27/18 Rosuvastatin [Crestor -] 5 mg PO HS 09/27/18 Oxycodone HCl/Acetaminophen [Percocet 5-325 mg Tablet] 1 tab PO Q6H 11/21/19 Zolpidem Tartrate [Ambien] 10 mg PO HS 11/21/19 Apixaban [Eliquis -] 2.5 mg PO BID 11/22/19 Cholecalciferol (Vitamin D3) [Vitamin D3] 2,000 unit PO DAILY 11/22/19 Famotidine [Pepcid] 40 mg PO DAILY 11/22/19 Sennosides [Senna] 8.6 mg PO BID 11/22/19 Gabapentin [Neurontin -] 300 mg PO BID #60 capsule 11/23/19
[2019-11-23] MEDS ORDERED: DEXTROSE 5%-WATER 100 ML IVPB ONE (09:16)
[2019-11-23] MEDS: ASPIRIN 81 MG CHEWABLE TABLETS PO SCH (09:21)
[2019-11-23] MEDS: CEFTRIAXONE 2 GM in DEXTROSE 5%-WATER 100 ML IVPB SCH (09:21)
[2019-11-23] MEDS: APIXABAN 2.5 MG TABLET PO SCH ×2 (09:21→22:07)
[2019-11-23] MEDS: LOSARTAN POTASSIUM 25 MG TABLET PO SCH (09:22)
[2019-11-23] MEDS: oxyCODONE HCL 5 MG TABLET PO PRN ×2 (09:22→17:22)
[2019-11-23] MEDS: DULoxetine HCL 30 MG CAPSULE.DR PO SCH (09:24)
[2019-11-23] MEDS: ACETAMINOPHEN 325 MG TABLET (FP) PO PRN ×2 (09:24→17:24)
[2019-11-23] MEDS: MIRTAZAPINE 15 MG TABLET (FP) PO SCH (09:25)
[2019-11-23] MEDS: GABAPENTIN 300 MG CAPSULE PO SCH ×2 (09:25→22:07)
--- NOTE | 2019-11-23 14:07 | PN ---
Progress Note, Physician History of Present Illness: AWAKE, ALERT NO COMPLAINTS DENIES DYSURIA NO C/O FEVER/ CHILLS AFEBRILE WBC WNL COVID-19 (-) BC (-) uRINE C/S PROTEUS - Current Medication List Current Medications: Active Medications Acetaminophen (Tylenol -) 1,000 mg PO Q6H PRN PRN Reason: PAIN 4-6 Last Admin: 11/23/19 04:05 Dose: 1,000 mg Documented by: Acetaminophen (Tylenol -) 325 mg PO Q6H PRN PRN Reason: PAIN LEVEL 6-10 Last Admin: 11/23/19 09:24 Dose: 325 mg Documented by: Apixaban (Eliquis -) 2.5 mg PO BID [facility] Last Admin: 11/23/19 09:21 Dose: 2.5 mg Documented by: Aspirin (Asa -) 81 mg PO DAILY [facility] Last Admin: 11/23/19 09:21 Dose: 81 mg Documented by: Duloxetine HCl (Cymbalta -) 30 mg PO DAILY [facility] Last Admin: 11/23/19 09:24 Dose: 30 mg Documented by: Gabapentin (Neurontin -) 300 mg PO BID [facility] Last Admin: 11/23/19 09:25 Dose: 300 mg Documented by: Sodium Chloride (Normal Saline -) 1,000 mls @ 75 mls/hr IV ASDIR [facility] Last Admin: 11/22/19 23:51 Dose: Not Given Documented by: Ceftriaxone Sodium 2 gm/ (Dextrose) 100 mls @ 100 mls/hr IVPB DAILY [facility]; Protocol Last Admin: 11/23/19 09:21 Dose: 100 mls/hr Documented by: Insulin Aspart (Novolog Vial Sliding Scale -) 1 vial SQ ACHS [facility]; Protocol Last Admin: 11/23/19 11:50 Dose: Not Given Documented by: Losartan Potassium (Cozaar -) 25 mg PO DAILY [facility] Last Admin: 11/23/19 09:22 Dose: 25 mg Documented by: Mirtazapine (Remeron -) 15 mg PO DAILY [facility] Last Admin: 11/23/19 09:25 Dose: 15 mg Documented by: Oxycodone HCl (Roxicodone -) 5 mg PO Q6H PRN PRN Reason: PAIN LEVEL 6-10 Last Admin: 11/23/19 09:22 Dose: 5 mg Documented by: Rosuvastatin Calcium (Crestor -) 5 mg PO HS [facility] Last Admin: 11/22/19 21:45 Dose: 5 mg Documented by: - Objective Vital Signs: Vital Signs Temperature 98.3 F 11/23/19 13:00 Pulse Rate 71 11/23/19 13:00 Respiratory Rate 11/23/19 13:00 Blood Pressure 113/72 11/23/19 13:00 O2 Sat by Pulse Oximetry (%) 98 11/23/19 09:30 Constitutional: Yes: No Distress Eyes: Yes: Conjunctiva Clear Cardiovascular: Yes: Regular Rate and Rhythm, S1, S2 Respiratory: Yes: CTA Bilaterally Gastrointestinal: Yes: Normal Bowel Sounds, Soft. No: Tenderness Edema: No Labs: CBC, BMP 11/22/19 06:35 11/22/19 06:35 Assessment/Plan UTI-PROTEUS R/O SEPSIS SECONDARY TO UTI S/P NEAR SYNCOPE CONTINUE CEFTRIAXONE
[2019-11-23] MEDS: ROSUVASTATIN CA 5 MG TABLET (FP) PO SCH (22:07)
[2019-11-24] MEDS: INSULIN SLIDING SCALE (NOVOLOG) 1 VIAL SQ SCH ×2 (06:33→11:55)
[2019-11-24] MEDS ORDERED: DEXTROSE 5%-WATER 100 ML IVPB ONE (08:39)
[2019-11-24] MEDS: oxyCODONE HCL 5 MG TABLET PO PRN (08:41)
[2019-11-24] MEDS: ACETAMINOPHEN 325 MG TABLET (FP) PO PRN (08:42)
[2019-11-24 08:48] VITALS: BP 131/78; PULSE 70; TEMP 97.7
[2019-11-24] MEDS: ASPIRIN 81 MG CHEWABLE TABLETS PO SCH (09:49)
[2019-11-24] MEDS: DULoxetine HCL 30 MG CAPSULE.DR PO SCH (09:49)
[2019-11-24] MEDS: LOSARTAN POTASSIUM 25 MG TABLET PO SCH (09:49)
[2019-11-24] MEDS: APIXABAN 2.5 MG TABLET PO SCH (09:50)
[2019-11-24] MEDS: GABAPENTIN 300 MG CAPSULE PO SCH (09:50)
[2019-11-24] MEDS: CEFTRIAXONE 2 GM in DEXTROSE 5%-WATER 100 ML IVPB SCH (09:50)
[2019-11-24] MEDS: MIRTAZAPINE 15 MG TABLET (FP) PO SCH (09:50)
--- NOTE | 2019-11-24 13:16 | PN ---
Progress Note (short form) - Note Progress Note: PATIENT SEEN AND EXAMINED DISCHARGED HOME F/U WITH PMD TUESDAY IN 2 DAYS FOLLOW UP URINE CULTURES FOR PROTEUS CEFTRIAXONE DOSE PRIOR TO DISCHARGE
== END 2019-11-24 13:22 | disposition home or self-care (01) | DRG 690 ==
LOC: JER 18:58 → JERBED 22:03 → J4S 11-22 03:26 → OBSVTOIN 11-23 08:33
PROVIDERS: ADMIT Internal Medicine; ATTEND Family Medicine
DX: N39.0 Urinary tract infection, site not specified (principal); C85.90 Non-Hodgkin lymphoma, unspecified, unspecified site; D64.9 Anemia, unspecified; I10 Essential (primary) hypertension; E78.5 Hyperlipidemia, unspecified; E11.9 Type 2 diabetes mellitus without complications; Z85.3 Personal history of malignant neoplasm of breast; Z79.84 Long term (current) use of oral hypoglycemic drugs; R55 Syncope and collapse; R51 Headache; M48.061 Spinal stenosis, lumbar region without neurogenic claudication; M54.16 Radiculopathy, lumbar region; B96.4 Proteus (mirabilis) (morganii) as the cause of diseases classified elsewhere
CPT/HCPCS: 36415; 70450-TC; 70553-TC; 71045-TC-FY; 80048; 80053; 81003; 82308; 82962; 83605; 83690; 84100; 84443; 84484; 85025; 85027; 87040; 87077; 87086; 93005; 93010; 93880-TC; 97116-GP; 97161-GP; 99285-25; A9579; G0378; J0131; J7030; U0003